=== PATIENT | female | born 1985 | race Caucasian/White ===

== ENCOUNTER 2018-09-28 10:13 | Inpatient (IN) | payer MEDICAID ==
[~2018-09-28] VITALS: Ht 165.1 cm; Wt 80.7 kg
[2018-09-28 10:16] VITALS: BP 125/71
[2018-09-28] MEDS ORDERED: ACETAMINOPHEN EXTRA STRENGTH 500 MG TAB PO ONE (10:25)
--- NOTE | 2018-09-28 10:30 | NUR ---
PT AMBULATED TO ER BED 09
[2018-09-28] MEDS ORDERED: ACETAMINOPHEN EXTRA STRENGTH 500 MG TAB ONE (10:37)
--- NOTE | 2018-09-28 10:37 | NUR ---
PT PRESENTS TO ED WITH C/O FEVER/COUGH AND CONGESTON OFF AND ON FOR 9 DAYS. PT STATES LAST NIGHT HAS BEEN THE WORST WHEN SHE WOKE UP AND HAD SOB AND FEVER. PT STATES SHE HAS TAKEN OVER THE COUNTER MEDS (THERA-FLU/MOTRIN/TYLENOL) WITH NO EFFECT. PT ALERT/ORIENTED, ANSWERING QUESTIONS APPROPRIATELY. PT LUNGS CLEAR, CONGESTION AND COUGH NOTED,
--- NOTE | 2018-09-28 11:29 | NUR ---
DR GALDAMEZ AT BEDSIDE EVALUATING PT
--- NOTE | 2018-09-28 11:31 | NUR ---
XRAY AT BEDSIDE
[2018-09-28 11:35] LABS: HEMATOCRIT 38.2 % (36-48); HEMOGLOBIN 12.7 g/dL (12.0-16.0); MEAN CORPUSCULAR HEMOGLOBIN 29 pg (27-31); MEAN CORPUSCULAR HGB CONC 33 g/dL (33-37); MEAN CORPUSCULAR VOLUME 87.7 fL (80-94); PLATELET COUNT (AUTO) 202 K/uL (140-450); RED BLOOD CELL COUNT(AUTO) 4.36 MIL/uL (4.20-5.40); RED CELL DISTRIBUTION WIDTH 12.2 % (11.6-13.7); WHITE BLOOD COUNT (AUTO) 19.1 K/uL (4.8-10.8)
[2018-09-28 11:39] LABS: APPEARANCE,URINE CLEAR (CLEAR); BILIRUBIN,URINE NEGATIVE (NEGATIVE); BLOOD, URINE TRACE-I (NEGATIVE); COLOR,URINE YELLOW (YELLOW); LEUKOCYTE ESTERASE ,URINE NEGATIVE (NEGATIVE); NITRITE, URINE NEGATIVE (NEGATIVE); UGLUCOSE NEGATIVE (NEGATIVE)
[2018-09-28 12:12] LABS: LYMPHOCYTES % (MANUAL) 6 % (20-46); MONOCYTES % (MANUAL) 3 % (5-12)
[2018-09-28 12:36] LABS: ALBUMIN 3.1 g/dL (3.4-5.0); ANION GAP 14.3 (8-16); CARBON DIOXIDE 23.1 mmol/L (21-32); CREATININE 1.2 mg/dL (0.6-1.3); POTASSIUM 3.4 mmol/L (3.5-5.1); TOTAL BILIRUBIN 0.6 mg/dL (0.0-1.0)
--- NOTE | 2018-09-28 12:54 | NUR ---
PT SLEEPING, EASILY AROUSED. NO C/O PAIN AT THIS TIME.
[2018-09-28 13:05] LABS: RBC,URINE 0-5 /HPF (0-5); WBC,URINE 0-5 /HPF (0-5)
[2018-09-28] MEDS ORDERED: NACL 0.9% 1,000 ML IV ONE (13:10)
[2018-09-28] MEDS ORDERED: VANCOMYCIN 1,000 MG in DEXTROSE 5% 250 ML IV ONE (13:10)
[2018-09-28] MEDS ORDERED: PIPERACILLIN/TAZOBACTAM 3.375 GM in DEXTROSE 5% 50 ML IV ONE (13:10)
[2018-09-28] MEDS ORDERED: PIPERACILLIN/TAZOBACTAM 3.375 GM VIAL IV ONE (13:20)
[2018-09-28] MEDS ORDERED: VANCOMYCIN 1,000 MG VIAL ONE (13:21)
--- NOTE | 2018-09-28 14:30 | NUR ---
PT AT BEDSIDE, WENT TO GET PT LUNCH. PT ASKED FOR LIGHTS TO BE DIMMED. NO C/O PAIN AT THIS TIME.
--- NOTE | 2018-09-28 14:39 | NUR ---
STREP ORDERED AT 1425 AND COLLECTED AT 1439 AND SENT TO LAB.
--- NOTE | 2018-09-28 14:45 | NUR ---
LAB AT BEDSIDE
[2018-09-28] MEDS ORDERED: ACETAMINOPHEN 325 MG TAB PO PRN (15:10)
[2018-09-28] MEDS ORDERED: KETOROLAC 15 MG/ML VIAL IVP PRN (15:10)
[2018-09-28] MEDS ORDERED: PIPERACILLIN/TAZOBACTAM 4.5 GM in DEXTROSE 5% 100 ML IV ONE (15:10)
[2018-09-28] MEDS ORDERED: DOCUSATE SODIUM 100 MG GELCAP PO PRN (15:10)
[2018-09-28] MEDS ORDERED: ONDANSETRON 4 MG/2 ML VIAL IM/IVP PRN (15:10)
[2018-09-28] MEDS ORDERED: ALBUTEROL SULFATE/IPRATROPIU 3 ML SOL IH PRN (15:50)
--- NOTE | 2018-09-28 15:55 | NUR ---
TPatient will be admitted to care of DR DEJESUS. Admited to MED/SURG. Will go to room 111A Belongings list completed. Report to GAYATRI CONDE.
[2018-09-28 16:00] VITALS: BP 111/66
--- NOTE | 2018-09-28 16:00 | NUR ---
RECEIVED REPORT FROM EMERGENCY ROOM NURSE FOR CONTINUITY OF CARE. PT IN STABLE CONDITION. IV INTACT AND PATENT. RESPIRATIONS EVEN AND UNLABORED. SAFETY MEASURES IN PLACE. CALL LIGHT AT BEDSIDE. BED IN LOW POSITION.
[2018-09-28] MEDS ORDERED: POTASSIUM CHLORIDE 10 MEQ TABER PO SCH (17:00)
--- NOTE | 2018-09-28 17:00 | NUR ---
GAVE ORDERED MEDICATIONS. PT TOLERATED WELL. WILL CONTINUE TO MONITOR.
[2018-09-28] MEDS: NACL 0.9% 1,000 ML IV SCH ×2 (17:18→23:26)
[2018-09-28 17:40] LABS: AMYLASE 39 U/L (25-115); LIPASE 105 U/L (73-393)
[2018-09-28 17:54] LABS: CHOL/HDL RATIO 2.5 (1-4.5); PHOSPHORUS 2.4 mg/dL (2.5-4.9); THYROID STIMULATING HORMONE 0.27 uIU/mL (0.34-3.74)
[2018-09-28 18:29] LABS: PROTHROMBIN TIME 10.5 secs (10.8-13.4)
[2018-09-28] MEDS: ASCORBIC ACID INJ 1,500 MG in NACL 0.9% 100 ML IV SCH (18:50)
--- NOTE | 2018-09-28 19:22 | NUR ---
GAVE REPORT TO PAROLE SUPERVISOR NURSE NEHA FOR CONTINUITY OF CARE. PT IN STABLE CONDITION.
--- NOTE | 2018-09-28 19:23 | NUR ---
RECD. RESTING IN BED, AWAKE, A/OX4. RESPIRATION EVEN AND UNLABORED. IV OF NS AT 120 ML/HR INFUSING, RIGHT AC G20. LUNGS CLEAR ON BILATERAL AUSCULTATION. COMPLAINT OF FEELING CONGESTION AND OCCASIONAL PRODUCTIVE COUGHING, WITH WHITE, SMALL AMOUNT OF PHLEGM. 02 SAT - 96% ON ROOM AIR. PLAN OF CARE DISCUSSED. VERBALIZIED UNDERSTANDING. DENIES PAIN 0/10.
[2018-09-28 20:00] VITALS: BP 92/60
[2018-09-28 20:27] LABS: BARBITURATE, URINE NEG. ng/ml (NEG <=200); BENZODIAZEPINE, URINE NEG. ng/mL (NEG <=200); CANNABINOID, URINE NEG. ng/mL (NEG <=50); COCAINE, URINE NEG. ng/mL (NEG <=300); OPIATE, URINE NEG. ng/mL (NEG <=2000); PHENCYCLIDINE SCREEN,URINE NEG. ng/mL (NEG <=25)
[2018-09-28] MEDS: THIAMINE 200 MG in NACL 0.9% 50 ML IV SCH (20:40)
[2018-09-28] MEDS ORDERED: THIAMINE 200 MG/2 ML VIAL ONE (20:43)
[2018-09-28] MEDS: PIPER/TAZO 3.375GM/D5W PREMIX 50 ML IV SCH (21:24)
--- NOTE | 2018-09-28 22:00 | NUR ---
TOLERATED WELL VIT B1 AND ZOSYN IVPB, NO ALLERGIC REACTION NOTED.
--- NOTE | 2018-09-28 22:30 | NUR ---
LAURA OF CT CAME AND CHECKED ON PATIENT, LAST FOOD TAKEN STATED BY PATIENT IS 193. WILL COME BACK AT [address] OF ABD AND PELVIS WITH AND WITHOUT CONTRAST.
--- NOTE | 2018-09-28 23:27 | NUR ---
Patient's Plan of Care was discussed and reviewed with SHARI: NEHA
[2018-09-29] VITALS: BP 89/55
--- NOTE | 2018-09-29 | NUR ---
SLEEPING COMFORTABLY IN BED.
[2018-09-29] MEDS: ASCORBIC ACID INJ 1,500 MG in NACL 0.9% 100 ML IV SCH ×4 (00:19→18:09)
--- NOTE | 2018-09-29 03:20 | NUR ---
TAKEN TO RADIOLOGY VIA W/C ACCOMPANIED BY FABIO FOR CT OF ABDOMEN AND PELVIS.
[2018-09-29 04:00] VITALS: BP 95/55
--- NOTE | 2018-09-29 04:05 | NUR ---
BACK FROM RADIOLOGY TO ROOM.
[2018-09-29] MEDS: PIPER/TAZO 3.375GM/D5W PREMIX 50 ML IV SCH ×3 (04:51→21:30)
[2018-09-29] MEDS: NACL 0.9% 1,000 ML IV SCH ×3 (05:55→21:06)
--- NOTE | 2018-09-29 06:36 | NUR ---
RESTING COMFORTABLY SLEEPING IN BED. CONDITION REMAIN STABLE.
--- NOTE | 2018-09-29 07:10 | NUR ---
NO FEVER NOTED DURING SHIFT. ENDORSED TO AM NURSE CONDE FOR CONTINUITY OF CARE.
--- NOTE | 2018-09-29 07:11 | NUR ---
RECEIVED REPORT FROM FURNITURE SALES CONSULTANT NURSE NEHA FOR CONTINUITY OF CARE. PT IN STABLE CONDITION. RESPIRATIONS EVEN AND UNLABORED. IV LINE INTACT AND PATENT. SAFETY MEASURES IN PLACE. BED IN LOW POSITION. CALL LIGHT AT BEDSIDE. WILL CONTINUE TO MONITOR.
[2018-09-29 07:24] LABS: BASOPHILS % (AUTO) 0.2 % (0.0-2.0); EOSINOPHILS # (AUTO) 0.1 K/uL (0-0.4); EOSINOPHILS % (AUTO) 1.3 % (0.0-4.0); HEMATOCRIT 33.9 % (36-48); HEMOGLOBIN 11.5 g/dL (12.0-16.0); LYMPHOCYTES # (AUTO) 2.3 K/uL (2.5-16.5); MEAN CORPUSCULAR HEMOGLOBIN 30 pg (27-31); MEAN CORPUSCULAR HGB CONC 34 g/dL (33-37); MEAN CORPUSCULAR VOLUME 88.9 fL (80-94); MONOCYTES # (AUTO) 0.6 K/uL (0.8-1.0); MONOCYTES % (AUTO) 6.2 % (1.7-9.3); NEUTROPHILS # (AUTO) 7.3 K/uL (1.8-7.7); NEUTROPHILS % (AUTO) 70.3 % (42.2-75.2); PLATELET COUNT (AUTO) 175 K/uL (140-450); RED BLOOD CELL COUNT(AUTO) 3.81 MIL/uL (4.20-5.40); RED CELL DISTRIBUTION WIDTH 12.2 % (11.6-13.7); WHITE BLOOD COUNT (AUTO) 10.4 K/uL (4.8-10.8)
[2018-09-29 07:48] LABS: MAGNESIUM 2.2 mg/dL (1.8-2.4); PHOSPHORUS 2.3 mg/dL (2.5-4.9)
[2018-09-29 07:51] LABS: CARBON DIOXIDE 27.2 mmol/L (21-32); CREATININE 0.8 mg/dL (0.6-1.3); POTASSIUM 4.2 mmol/L (3.5-5.1)
[2018-09-29 08:00] VITALS: BP 104/66
--- NOTE | 2018-09-29 08:38 | NUR ---
PATIENT HAS BEEN SCREENED AND CATEGORIZED HIGH NUTRITION RISK. PATIENT WILL BE SEEN WITHIN 1-2 DAYS OF ADMISSION. 09/29/18-09/30/[address]
[2018-09-29] MEDS ORDERED: SODIUM PHOS / POTASSIUM PHOS 1 PKT PDR PO SCH (09:00)
[2018-09-29] MEDS: LACTOBACILLUS RHAMNOSUS GG 1 EACH CAP PO SCH (09:11)
[2018-09-29] MEDS: THIAMINE 200 MG in NACL 0.9% 50 ML IV SCH ×2 (09:15→21:14)
--- NOTE | 2018-09-29 09:30 | NUR ---
PT LYING IN BED SLEEPING AT THIS TIME. PT IN STABLE CONDITION. RESPIRATIONS EVEN AND UNLABORED. WILL CONTINUE TO MONITOR.
[2018-09-29 12:00] VITALS: BP 111/63
--- NOTE | 2018-09-29 13:15 | NUR ---
ULTRASOUND FOR VENOUS LEFT UPPER EXTREMITY BEING PREFORMED. PT IN STABLE CONDITION.
--- NOTE | 2018-09-29 14:06 | NUR ---
09/29/18 RD INITIAL ASSESSMENT COMPLETED PLEASE REFER TO NUTRITION ASSESSMENT UNDER CARE ACTIVITY FOR ESTIMATED NUTRITIONAL NEEDS. 1. CONTINUE REGULAR DIET TOLERATED 2. RD PROVIDED GENERAL HEALTHY EATING HANDOUT AND EDUCATION. PT ACCEPTED 3. RD TO FOLLOW-UP 5-7 DAYS, LOW RISK MAKENZIE GUIDO, RD
[2018-09-29 16:00] VITALS: BP 108/68
--- NOTE | 2018-09-29 16:15 | NUR ---
PT LYING IN BED WATCHING TV ON HER PHONE AT THIS TIME. PT IN STABLE CONDITION. RESPIRATIONS EVEN AND UNLABORED. WILL CONTINUE TO MONITOR.
--- NOTE | 2018-09-29 19:27 | NUR ---
GAVE REPORT TO BUSINESS INVESTOR NURSE TESSIE FOR CONTINUITY OF CARE. PT IN STABLE CONDITION.
--- NOTE | 2018-09-29 19:28 | NUR ---
RECEIVED REPORT FROM PREVIOUS SHIFT PT AWAKE ALERT O X 4; AMBULATORY W/ IV ON LEFT FA INTACT, INFUSING IVF; PT MEDSURG. POC REVIEWED. NO SOB; NO PAIN COMPLAINTS AT THIS TIME. PLACED CALL LIGHT WITHIN REACH. WILL CONTINUE TO MONITOR
[2018-09-29 20:00] VITALS: BP 105/62
--- NOTE | 2018-09-29 21:00 | NUR ---
MEDICATED PATIENT ORDERED. PT TOLERATED MEDS. NO ADVERSE REACTIONS
--- NOTE | 2018-09-29 22:00 | NUR ---
PT AMBULATIING TO BATHROOM W/ STEADY GAIT, ABLE TO DO 1 BM
[2018-09-30] VITALS: BP 105/63
--- NOTE | 2018-09-30 | NUR ---
PT WENT TO BATHROOM W/ STEADY GAIT VOIDED. CLEAR YELLOW URINE
[2018-09-30] MEDS: ASCORBIC ACID INJ 1,500 MG in NACL 0.9% 100 ML IV SCH ×2 (00:34→06:13)
--- NOTE | 2018-09-30 01:40 | NUR ---
PT SLEEPING NO PAIN NO SOB AT THIS TIME
[2018-09-30 04:00] VITALS: BP 112/62
[2018-09-30] MEDS: PIPER/TAZO 3.375GM/D5W PREMIX 50 ML IV SCH ×2 (05:00→06:15)
--- NOTE | 2018-09-30 07:15 | NUR ---
RECEIVED BEDSIDE PT REPORT FROM DETECTIVE BOWLING ALLEY NURSE, PT IS AWAKE AND ALERT IN BED, NO S/S OF ANY ACUTE DISTRESS OR SOB NOTED AT THIS TIME. PT IS ON ROOM AIR, SKIN INTACT. PIV NOTED ON THE L AC, 20 G, INFUSING NS 60 ML/HR. PT IS ON A REGULAR DIET. PT IS AMBULATORY AND NOT CONSIDERED A FALL RISK. CALL LIGHT IS WITHIN REACH, WILL CONTINUE TO MONITOR.
--- NOTE | 2018-09-30 07:20 | NUR ---
ENDORSED TO AM SHIFT FOR CONTINUITY OF CARE. PT IN STABLE CONDITION. NO SOB. NO PAIN AT THIS TIME
[2018-09-30 08:00] VITALS: BP 115/72
[2018-09-30] MEDS ORDERED: DOXY100C9 PO (08:45)
[2018-09-30] MEDS ORDERED: INUL1CTB PO (08:45)
[2018-09-30] MEDS ORDERED: AMOX500C25 PO (08:45)
[2018-09-30 09:06] LABS: BASOPHILS % (AUTO) 0.3 % (0.0-2.0); EOSINOPHILS # (AUTO) 0.2 K/uL (0-0.4); EOSINOPHILS % (AUTO) 2.1 % (0.0-4.0); HEMATOCRIT 38.8 % (36-48); HEMOGLOBIN 12.6 g/dL (12.0-16.0); LYMPHOCYTES # (AUTO) 2.6 K/uL (2.5-16.5); LYMPHOCYTES % (AUTO) 29.7 % (20.5-51.1); MEAN CORPUSCULAR HEMOGLOBIN 29 pg (27-31); MEAN CORPUSCULAR HGB CONC 33 g/dL (33-37); MEAN CORPUSCULAR VOLUME 90.3 fL (80-94); MONOCYTES # (AUTO) 0.4 K/uL (0.8-1.0); MONOCYTES % (AUTO) 4.7 % (1.7-9.3); NEUTROPHILS # (AUTO) 5.6 K/uL (1.8-7.7); NEUTROPHILS % (AUTO) 63.2 % (42.2-75.2); PLATELET COUNT (AUTO) 239 K/uL (140-450); RED BLOOD CELL COUNT(AUTO) 4.29 MIL/uL (4.20-5.40); RED CELL DISTRIBUTION WIDTH 12.4 % (11.6-13.7); WHITE BLOOD COUNT (AUTO) 8.8 K/uL (4.8-10.8)
[2018-09-30 09:38] LABS: MAGNESIUM 2.1 mg/dL (1.8-2.4); PHOSPHORUS 2.9 mg/dL (2.5-4.9)
[2018-09-30 09:42] LABS: ANION GAP 13.4 (8-16); CARBON DIOXIDE 26.6 mmol/L (21-32); CREATININE 0.8 mg/dL (0.6-1.3)
[2018-09-30] MEDS: THIAMINE 200 MG in NACL 0.9% 50 ML IV SCH (09:48)
[2018-09-30] MEDS: LACTOBACILLUS RHAMNOSUS GG 1 EACH CAP PO SCH (09:48)
--- NOTE | 2018-09-30 09:53 | NUR ---
SCHEDULED AM MEDS ADMINISTERED. PT TOLERATED WELL.
--- NOTE | 2018-09-30 11:35 | NUR ---
PT HAS DISCHARGED. DISCHARGE INSTRUCTIONS AND PRESCRIPTION WERE GIVEN, PT VERBALIZED UNDERSTANDING OF DC INSTRUCTIONS. IV SITE AND WRIST BANDS REMOVED. PT LEFT WITH ALL HER BELONGINGS IN STABLE CONDITION ACCOMPANIED BY HER .
== END 2018-09-30 11:30 | disposition home or self-care (01) | DRG 720 ==
LOC: MED 10:13 → MTU 15:06
PROVIDERS: ADMIT General Practice; ATTEND General Practice
DX: A41.9 Sepsis, unspecified organism (principal); N17.0 Acute kidney failure with tubular necrosis; J18.9 Pneumonia, unspecified organism; E87.8 Other disorders of electrolyte and fluid balance, not elsewhere classified; E44.0 Moderate protein-calorie malnutrition; E83.51 Hypocalcemia; E87.1 Hypo-osmolality and hyponatremia; R31.9 Hematuria, unspecified; D64.9 Anemia, unspecified; E86.0 Dehydration; R80.9 Proteinuria, unspecified; R65.20 Severe sepsis without septic shock; R82.4 Acetonuria; E87.6 Hypokalemia; Z68.29 Body mass index [BMI] 29.0-29.9, adult; Z88.8 Allergy status to other drugs, medicaments and biological substances; Z80.9 Family history of malignant neoplasm, unspecified; Z82.49 Family history of ischemic heart disease and other diseases of the circulatory system
CPT/HCPCS: 36415; 71045; 80048; 80053; 80305; 81001; 81025; 82140; 82150; 83036; 83605; 83615; 83690; 83735; 83880; 84100; 84443; 84484; 85025; 85610; 85730; 87040; 87081; 87086; 87449; 87804; 93971; 96365; 96367; 99291; J2543; J3370; J3411; J7030; J7060; Q0092; Q9967

== ENCOUNTER 2019-12-08 19:50 | Observation (INO) | payer SELFPAY ==
[~2019-12-08] VITALS: Ht 165.1 cm; Wt 87.5 kg
[~2019-12-08 19:50] MED LIST: AMOX500C25 PO; DOXY100C9 PO; INUL1CTB PO
== END 2019-12-08 21:40 | disposition home or self-care (01) ==
LOC: MLD 19:50
PROVIDERS: ADMIT Obstetrics & Gynecology; ATTEND Obstetrics & Gynecology
DX: O36.8130 Decreased fetal movements, third trimester, not applicable or unspecified (principal); O26.892 Other specified pregnancy related conditions, second trimester; R10.9 Unspecified abdominal pain; Z3A.25 25 weeks gestation of pregnancy
CPT/HCPCS: 81000; G0378

== ENCOUNTER 2020-02-14 17:27 | Observation (INO) | payer SELFPAY ==
[~2020-02-14] VITALS: Ht 165.1 cm; Wt 97.1 kg
[2020-02-14] MEDS ORDERED: BETAMETH ACET/BETAMETH NA PH 30 MG/5 ML VIAL IM SCH (17:35)
[2020-02-14 17:54] VITALS: BP 111/66
[2020-02-14 18:01] LABS: BASOPHILS # (AUTO) 0.1 K/uL (0.00-0.22); BASOPHILS % (AUTO) 0.5 % (0.0-2.0); EOSINOPHILS # (AUTO) 0.3 K/uL (0-0.4); EOSINOPHILS % (AUTO) 2.6 % (0.0-4.0); HEMATOCRIT 33.6 % (36-48); HEMOGLOBIN 10.8 g/dL (12.0-16.0); LYMPHOCYTES # (AUTO) 2.1 K/uL (2.5-16.5); LYMPHOCYTES % (AUTO) 18.7 % (20.5-51.1); MEAN CORPUSCULAR HEMOGLOBIN 26 pg (27-31); MEAN CORPUSCULAR HGB CONC 32 g/dL (33-37); MEAN CORPUSCULAR VOLUME 81.4 fL (80-94); MONOCYTES % (AUTO) 8.8 % (1.7-9.3); NEUTROPHILS # (AUTO) 7.8 K/uL (1.8-7.7); NEUTROPHILS % (AUTO) 69.4 % (42.2-75.2); PLATELET COUNT (AUTO) 165 K/uL (140-450); RED BLOOD CELL COUNT(AUTO) 4.13 MIL/uL (4.20-5.40); RED CELL DISTRIBUTION WIDTH 13.8 % (11.6-13.7); WHITE BLOOD COUNT (AUTO) 11.2 K/uL (4.8-10.8)
[2020-02-14 18:09] LABS: APPEARANCE,URINE CLEAR (CLEAR); BILIRUBIN,URINE NEGATIVE (NEGATIVE); BLOOD, URINE TRACE-I (NEGATIVE); COLOR,URINE YELLOW (YELLOW); LEUKOCYTE ESTERASE ,URINE 1+ (NEGATIVE); NITRITE, URINE NEGATIVE (NEGATIVE); UGLUCOSE NEGATIVE (NEGATIVE)
[2020-02-14 18:15] LABS: RBC,URINE 0-5 /HPF (0-5)
[2020-02-14 18:16] LABS: WBC,URINE 16-25 (MOD) /HPF (0-5)
[2020-02-14 18:30] LABS: ANION GAP 15.3 (8-16); CARBON DIOXIDE 21.6 mmol/L (21-32); CREATININE 0.8 mg/dL (0.6-1.3); POTASSIUM 3.9 mmol/L (3.5-5.1)
[2020-02-14 18:36] LABS: ALBUMIN 2.4 g/dL (3.4-5.0); TOTAL BILIRUBIN 0.2 mg/dL (0.0-1.0)
[2020-02-14 18:44] LABS: PROTHROMBIN TIME 8.9 secs (10.8-13.4)
== END 2020-02-14 23:48 | disposition home or self-care (01) ==
LOC: MLD 17:27
PROVIDERS: ADMIT Obstetrics & Gynecology; ATTEND Obstetrics & Gynecology
DX: O9A.213 Injury, poisoning and certain other consequences of external causes complicating pregnancy, third trimester (principal); O23.43 Unspecified infection of urinary tract in pregnancy, third trimester; O99.353 Diseases of the nervous system complicating pregnancy, third trimester; G57.01 Lesion of sciatic nerve, right lower limb; J30.2 Other seasonal allergic rhinitis; Z88.5 Allergy status to narcotic agent; Z91.048 Other nonmedicinal substance allergy status; W18.39XA Other fall on same level, initial encounter; Y93.89 Activity, other specified; Y92.89 Other specified places as the place of occurrence of the external cause; Z3A.35 35 weeks gestation of pregnancy
CPT/HCPCS: 36415; 59025; 76805; 80053; 81000; 81001; 85025; 85384; 85610; 85730; 86886; 86900; 86901; 87086; 96372; G0378; J0702; Q0092

== ENCOUNTER 2020-02-15 19:55 | Observation (INO) | payer OTHER ==
[~2020-02-15] VITALS: Ht 165.1 cm; Wt 97.1 kg
[2020-02-15] MEDS ORDERED: BETAMETH ACET/BETAMETH NA PH 30 MG/5 ML VIAL IM ONE ×2 (20:15→20:43)
== END 2020-02-15 20:55 | disposition home or self-care (01) ==
LOC: MLD 19:55
PROVIDERS: ADMIT Obstetrics & Gynecology; ATTEND Obstetrics & Gynecology
DX: O26.893 Other specified pregnancy related conditions, third trimester (principal); R10.9 Unspecified abdominal pain; O34.219 Maternal care for unspecified type scar from previous cesarean delivery; Z3A.35 35 weeks gestation of pregnancy
CPT/HCPCS: 96372; G0378; J0702